=== PATIENT | female | born 1955 | race Caucasian/White ===

== ENCOUNTER 2017-05-27 07:24 | Day surgery (SDC) | payer BC ==
[2017-05-24 12:51] LABS: BILIRUBIN,URINE NEGATIVE (NEGATIVE); BLOOD, URINE TRACE (NEGATIVE); CLARITY/URINE CLEAR (CLEAR); COLOR,URINE YELLOW (YELLOW); GLUCOSE,URINE NEGATIVE (NEGATIVE); KETONES,URINE 2+ (NEGATIVE); LEUKOCYTE ESTERASE ,URINE NEGATIVE (NEGATIVE); NITRITE, URINE NEGATIVE (NEGATIVE); PROTEIN URINE NEGATIVE (NEGATIVE); UROBILINOGEN,URINE 0.2 (0.2-1.0)
[2017-05-24 12:58] LABS: INR 1.1 (0.8-1.2); PROTHROMBIN TIME 10.8 SECS (9.5-12.5)
[2017-05-24 12:59] LABS: ALBUMIN 3.8 g/dL (3.4-4.8); CALCIUM 8.9 mg/dL (8.4-11.0); CREATININE 0.46 mg/dL (0.55-1.30); POTASSIUM 3.8 mmol/L (3.5-5.1); TOTAL BILIRUBIN 0.4 mg/dL (0.0-1.0)
[2017-05-24 13:09] LABS: BASOPHILS # (AUTO) 0.1 K/uL (0.0-0.2); BASOPHILS % (AUTO) 0.8 % (0.0-2.0); EOSINOPHILS # (AUTO) 0.1 K/uL (0.0-0.4); EOSINOPHILS % (AUTO) 1.3 % (0.0-4.0); HEMOGLOBIN 13.2 g/dL (12.0-16.0); LYMPHOCYTES # (AUTO) 2.3 K/uL (1.0-5.5); LYMPHOCYTES % (AUTO) 35.7 % (20.5-51.5); MEAN CORPUSCULAR HEMOGLOBIN 29 pg (27-31); MEAN CORPUSCULAR HGB CONC 34 % (32-36); MEAN CORPUSCULAR VOLUME 87 fL (79.0-98.0); MONOCYTES # (AUTO) 0.6 K/uL (0.0-1.0); MONOCYTES % (AUTO) 8.6 % (1.7-9.3); NEUTROPHILS # (AUTO) 3.4 K/uL (1.8-7.7); NEUTROPHILS % (AUTO) 53.6 % (40.0-70.0); PLATELET COUNT (AUTO) 200 K/uL (130-430); RED BLOOD CELL COUNT(AUTO) 4.51 MIL/uL (4.2-6.2); RED CELL DISTRIBUTION WIDTH 12.1 % (9.0-15.0); WHITE BLOOD COUNT (AUTO) 6.5 K/uL (4.8-10.8)
[2017-05-24 13:25] LABS: BACTERIA,URINE FEW /HPF (None Seen); MUCUS,URINE None Seen /LPF (None Seen); RBC,URINE 0-3 /HPF (0-3)
[~2017-05-27] VITALS: Ht 160 cm; Wt 52.6 kg
[2017-05-27] MEDS ORDERED: MEPERIDINE HCL/PF 25 MG/ML DISP.SYRIN ONE (09:09)
[2017-05-27] MEDS ORDERED: PROPOFOL 200MG/ 20ML VIAL (DIPRIVAN) IV ONE (10:26)
[2017-05-27] MEDS ORDERED: fentaNYL CITRATE/PF 100 MCG/2 ML AMP IVP ONE (10:26)
[2017-05-27] MEDS ORDERED: DEXAMETHASONE SOD PHOSPHATE 4 MG/ML VIAL IVP ONE (10:26)
[2017-05-27] MEDS ORDERED: MEPERIDINE HCL/PF 100 MG/ML AMP IM ONE (10:26)
[2017-05-27] MEDS ORDERED: MIDAZOLAM HCL 5 MG/ML VIAL (VERSED) IV ONE (10:26)
[2017-05-27] MEDS ORDERED: LIDOCAINE 1% 10 MG/ML, 20 ML MDV INJ ONE (10:26)
[2017-05-27] MEDS ORDERED: WATER FOR IRRIGATION,STERILE 1,000 ML IRRIG.SOLN IR ONE (10:26)
[2017-05-27] MEDS ORDERED: SEVOFLURANE 15 MIN GAS INH ONE (10:26)
[2017-05-27] MEDS ORDERED: LR 1,000 ML IV.SOLN IV ONE (10:26)
[2017-05-27] MEDS ORDERED: NS 1000 ML BAG IV ONE (10:26)
[2017-05-27] MEDS ORDERED: ONDANSETRON HCL 4 MG/2 ML VIAL IVP ONE ×2 (10:26→11:45)
[2017-05-27] MEDS ORDERED: KETOROLAC TROMETHAMINE 30 MG VIAL IVP ONE (10:26)
[2017-05-27] MEDS ORDERED: HYDROmorphone 1 MG INJ. 1 MG/ML AMPUL IVP PRN (11:45)
[2017-05-27] MEDS ORDERED: fentaNYL CITRATE/PF 100 MCG/2 ML AMP IVP PRN (11:45)
[2017-05-27] MEDS ORDERED: KETOROLAC TROMETHAMINE 30 MG VIAL IVP PRN (11:45)
[2017-05-27] MEDS ORDERED: MEPERIDINE HCL/PF 25 MG/ML DISP.SYRIN IVP PRN (11:45)
[2017-05-27] MEDS ORDERED: IBUPROFEN 800 MG TABLET PO PRN (12:15)
[2017-05-27] MEDS ORDERED: OXYCODONE/ACETAMINOPHEN 5-325 TABLET PO PRN ×2 (12:15)
[2017-05-27] MEDS ORDERED: ONDANSETRON HCL 4 MG/2 ML VIAL IVP PRN (12:15)
[2017-05-27 12:45] VITALS: BP_SYST 139
== END 2017-05-27 13:25 | disposition home or self-care (01) ==
LOC: SMU 07:24 → SDS 07:24
PROVIDERS: ATTEND Obstetrics & Gynecology
DX: N84.0 Polyp of corpus uteri (principal); E03.9 Hypothyroidism, unspecified; Z88.2 Allergy status to sulfonamides; Z85.3 Personal history of malignant neoplasm of breast; M19.90 Unspecified osteoarthritis, unspecified site
CPT/HCPCS: 36415; 58558; 80053; 81000; 85025; 85610; 85730; 86886; 86900; 86901; 87086; 88305; J1100; J1885; J2001; J2175 ×2; J2250; J2405; J2704; J3010; J7030; J7120